=== PATIENT | female | born 1985 | race Caucasian/White ===

== ENCOUNTER 2017-08-13 05:50 | Inpatient (IN) | payer BC ==
[2017-08-13] MEDS ORDERED: OXYTOCIN 10 UNIT/ML 1 ML VIAL IM PRN (06:06)
[2017-08-13] MEDS ORDERED: METHYLERGONOVINE 0.2 MG/ML 1 ML AMP IM PRN (06:06)
[2017-08-13] MEDS ORDERED: LIDOCAINE 1% (PF) 10 MG/ML (30 ML SDV) SQ PRN (06:06)
[2017-08-13] MEDS ORDERED: CARBOPROST TROMETHAMINE 250 MCG/ML 1 ML AMP IM PRN (06:06)
[2017-08-13] MEDS ORDERED: TERBUTALINE 1 MG/ML VIAL SQ PRN (06:06)
[2017-08-13] MEDS ORDERED: OXYTOCIN 20 UNITS/1000 ML NS 1,000 ML IV SCH (06:15)
[2017-08-13 06:18] LABS: Basophils # (A) 0.1 k/uL (0-0.2); Basophils % (A) 0 %; Eosinophils # (A) 0.6 k/uL (0-0.7); Eosinophils % (A) 4 %; HCT 37.1 % (34.0-46.0); HGB 12.3 gm/dL (11.4-16.0); Lymphocytes # (A) 2.5 k/uL (1.0-4.8); Lymphocytes % (A) 17 %; MCH 31.5 pg (25.0-35.0); MCHC 33.2 g/dL (31.0-37.0); MCV 94.8 fL (80.0-100.0); Mean Platelet Volume 7.2; Monocytes # (A) 0.7 k/uL (0-1.0); Monocytes % (A) 5 %; Neutrophils # (A) 10.4 k/uL (1.3-7.7); Neutrophils % (A) 72 %; Platelet Count 253 k/uL (150-450); RBC 3.91 m/uL (3.80-5.40); WBC 14.4 k/uL (3.8-10.6)
[2017-08-13 06:24] VITALS: BMI 28.0
[2017-08-13] MEDS: LACTATED RINGERS 1,000 ML IV SCH ×2 (06:24→11:34)
--- NOTE | 2017-08-13 07:38 | P.HPOB ---
History of Present Illness H&P Date: 08/13/17 This is a 31-year-old white female 1 para 0 EDC 08/26/2017 at 38 and one sevenths week. Patient presents for induction for known intrauterine growth restriction, and newly diagnosed oligohydramnios. Ultrasound in the office yesterday revealed an SD ratio of 75th percentile, but an LULU of only 3 cm. Fetus is been active throughout the . She presents today with mild irregular contractions. She denies fluid leakage or vaginal bleeding. history is significant for known intrauterine growth restriction, less than 3rd percentile. Patient has been followed closely with twice weekly nonstress testing, weekly LULU, and weekly SD ratios which have all been normal. Blood type is B-, broke and received. Urine culture, hepatitis B surface antigen, HIV testing, gonorrhea and chlamydia cultures, group B strep cultures all negative. One-hour Glucola 97. Past medical history is essentially negative. Past surgical history colposcopy in the past, wisdom teeth extracted. Current medications vitamins daily, Fish oil daily. ALLERGIES none known. Social history patient is , she is a nonsmoker, she denies alcohol or drug use. On exam this is a pleasant white female, 5 foot 3 inches, 158 pounds, blood pressure 131/75, vital signs are stable and she is afebrile. Chest is clear in all rick. Extremities reveal no edema. Cervix is 3 cm dilated, 80% effaced, -1 to -2 station, vertex presentation, soft and anterior. Artificial amniorrhexis reveals scant clear non-malodorous fluid. heart rate consistent with reactive nonstress test. Impression: Intrauterine growth restriction at 38 and one sevenths weeks gestation, oligohydramnios. Plan: Close maternal and surveillance. Anticipate normal spontaneous vaginal delivery. Review of Systems Negative except as in HPI Past Medical History Past Medical History: No Reported History History of Any Multi-Drug Resistant Organisms: None Reported Past Surgical History: No Surgical Hx Reported Past Anesthesia/Blood Transfusion Reactions: No Reported Reaction Past Psychological History: No Psychological Hx Reported Smoking Status: Never smoker Past Alcohol Use History: None Reported Past Drug Use History: None Reported - Past Family History Father Family Medical History: No Reported History Medications and Allergies Home Medications Medication Instructions Recorded Confirmed Type Pnv,Calcium 72/Iron/Folic Acid 1 tab PO DAILY 08/13/17 08/13/17 History [ Plus Tablet] Allergies Allergy/AdvReac Type Severity Reaction Status Date / Time No Known Allergies Allergy Verified 08/13/17 06:05 Exam - Vital Signs Vital signs: Vital Signs Temp Pulse Resp BP 08/13/17 06:05 97.6 F 80 16 131/75 Intake and Output 08/12/17 08/13/17 08/13/17 22:59 06:59 14:59 Other: Weight 71.668 kg See dictation, please Results Result Diagrams: 08/13/17 06:10 Abnormal Lab Results - Last 24 Hours (Table) 08/13/17 Range/Units 06:10 WBC 14.4 H (3.8-10.6) k/uL Neutrophils # 10.4 H (1.3-7.7) k/uL Assessment and Plan Plan: Oxytocin per hospital protocol. Close maternal and surveillance. Anticipate normal spontaneous vaginal delivery. Time with Patient: Less than 30
[2017-08-13] MEDS: BUTORPHANOL 1 MG/ML 1 ML VIAL IV PRN ×2 (10:15→12:12)
[2017-08-13] MEDS ORDERED: Acetaminophen-Codeine 300-30mg TAB PO PRN (13:57)
[2017-08-13] MEDS ORDERED: diphenhydrAMINE 50 MG CAP PO PRN (13:57)
[2017-08-13] MEDS ORDERED: WITCH HAZEL 1 EACH MED..PAD TOPICAL PRN (13:57)
[2017-08-13] MEDS ORDERED: SIMETHICONE 80 MG CHEWABLE PO PRN (13:57)
[2017-08-13] MEDS ORDERED: BENZOCAINE/MENTHOL SPRAY 1 GM/SPRAY AEROSOL TOPICAL PRN (13:57)
[2017-08-13] MEDS ORDERED: LANOLIN CREAM 5 GM TUBE TOPICAL PRN (13:57)
[2017-08-13] MEDS ORDERED: diphenhydrAMINE 25 MG CAP PO PRN (13:57)
[2017-08-13] MEDS ORDERED: HYDROCORTISONE 2.5% RECTAL CREAM 30 GM TUBE RECTAL PRN (13:57)
[2017-08-13] MEDS ORDERED: ACETAMINOPHEN TAB 325 MG TAB PO PRN (13:57)
[2017-08-13] MEDS ORDERED: ZOLPIDEM 5 MG TAB PO PRN (13:57)
[2017-08-13] MEDS ORDERED: diphenhydrAMINE 50 MG/ML 1 ML VIAL IVP PRN ×2 (13:57)
--- NOTE | 2017-08-13 13:57 | P.PROBDLV ---
Vaginal Delivery Note - . Vaginal Delivery Note: This is a 31-year-old white female 1 para 0 EDC 08/26/2017 at 38 and one sevenths weeks' gestation. Patient presented for induction with favorable cervix, for known intrauterine growth restriction and recently diagnosed oligohydramnios. SD ratio in the office with 75th percentile. Please see my dictated history and physical for details. On admission patient was 2-3 cm dilated, 80%, -2 to -1 station, vertex, anterior , soft. Artificial amniorrhexis revealed scant clear fluid. Oxytocin was started and titrated per hospital protocol. She was offered epidural but declined, she did receive Stadol. She became completely dilated at 1315 hours and began the second stage of labor at that time. heart tones were reassuring throughout the first and second stages of labor. Perineal body was ultimately prepped and draped in usual sterile fashion. Infant's head delivered occiput anterior and restituted accordingly. There was no nuchal cord noted. The patient was officially delivered of a liveborn male at 1338 hours. The oropharynx, nasopharynx, and external nares were bulb suctioned on the perineum. Umbilical cord was doubly clamped and ligated, he was handed to waiting nurses for evaluation where scores of 8 and 9 at one and 5 minutes respectively were given. Infant weighed 2665 g or 5 lbs. 14 oz. At this time the perineal body was redraped. Uterus was massaged, mobile, symmetric and 18 week size. Bleeding was slightly brisk and therefore Methergine was given 1 with immediate results. Inspection of the cervix, vagina, perineum, periurethral and perirectal areas revealed a small midline first-degree laceration. This was easily repaired in the usual fashion using 3- 0 Vicryl suture. Total estimated blood loss 350 mL's. All sponge needle and enhancement counts are correct at the end of the procedure. Patient and her family are requesting circumcision further son. The are allowed to begin the bonding experience in the LDR.
[2017-08-13] MEDS: IBUPROFEN 600 MG TAB PO PRN (17:43)
[2017-08-13] MEDS: SENNOSIDES-DOCUSATE SODIUM 1 EACH TAB PO SCH (19:36)
--- NOTE | 2017-08-14 07:53 | P.DS ---
Providers Date of admission: 08/13/17 05:50 Expected date of discharge: 08/14/17 Attending physician: Jes Boyle Primary care physician: Stated None Hospital Course: This is a 31-year-old white female 1 para 0 who presented at 38 and one sevenths weeks with a known intrauterine growth restriction baby, with newly diagnosed oligohydramnios. Ultrasound in the office revealed an amniotic fluid index of only 3 cm. SD ratio was normal at 75th percentile. Cervix was favorable, decision was made to proceed with induction. Please see my dictated history and physical for details. Artificial amniorrhexis was performed. Patient declining the option of epidural. She did receive Stadol 1. Oxytocin was started and titrated per hospital protocol. She went on to deliver a liveborn male infant with scores of 8 and 9 at one and 5 minutes respectively. weighed 5 lbs. 14 oz. There was a small first-degree perineal laceration easily repaired. Please see my dictated delivery note for details. This morning the patient and her baby are both doing well. Breast-feeding is going well. Pain is well-controlled with ibuprofen products. Fundus is firm and in the midline, symmetric and 18 week size. Extremities reveal no edema. Banco has been circumcised. He is doing well at the bedside. Patient' s extremities are negative, perineal body is clean and dry, lochia is minimal to moderate. Patient is judged to be in excellent condition for discharge home. She is reminded no tampons, intercourse or douching. She will use [id number] Aleve as needed for pain. She will call me with any fevers shakes or chills, foul smelling or copious lochia, with the passage of large blood clots, with any pain not alleviated by [id number] products, or indeed with any concerns. Banco will follow-up with departmental secretary as per recommendations. We have discussed briefly her options for contraception and we will discuss this further in the office. Patient Condition at Discharge: Good Plan - Discharge Summary New Discharge Prescriptions: No Action Pnv,Calcium 72/Iron/Folic Acid [ Plus Tablet] 1 tab PO DAILY Discharge Medication List Pnv,Calcium 72/Iron/Folic Acid [ Plus Tablet] 1 tab PO DAILY 08/13/17 [ History] Follow up Appointment(s)/Referral(s): Jes Boyle MD [STAFF PHYSICIAN] - 6 Weeks Discharge Disposition: HOME SELF-CARE
[2017-08-14] MEDS: SENNOSIDES-DOCUSATE SODIUM 1 EACH TAB PO SCH ×2 (08:04→20:23)
[2017-08-14] MEDS: IBUPROFEN 600 MG TAB PO PRN ×2 (08:07→13:16)
[2017-08-14] MEDS ORDERED: BISACODYL 10 MG SUPP RECTAL PRN (20:20)
[2017-08-15 00:16] VITALS: RESP 16
[2017-08-15] MEDS: IBUPROFEN 600 MG TAB PO PRN (02:24)
--- NOTE | 2017-08-15 08:19 | P.PNOBGVD ---
Subjective - Subjective Principal diagnosis: day 2 normal spontaneous vaginal delivery Interval history: This patient has done well . Onpostpartum day #2 she is indwelling and voiding without difficulty. She states her lochia is minimal. She is breast-feeding without difficulty. She is tolerating a regular diet without nausea or vomiting and wishes to be discharged home. Patient reports: Reports appetite normal, Reports voiding normally, Reports pain well controlled, Reports ambulating normally, Denies nauseated : doing well Objective - Latest Vital Signs Latest vital signs: Vital Signs Temp Pulse Pulse Resp BP BP Pulse Ox 08/15/ 00:00 98.4 F 86 16 129/72 08/14/17 16:00 97.8 F 80 18 107/68 98 08/14/ 08:23 97.7 F 80 80 16 111/70 97 - Exam Lungs: bilateral: normal Extremities: Present: normal Abdomen: Present: normal appearance Uterus: Present: firm Assessment and Plan (1) Term Narrative/Plan: We'll plan discharge home today on postoperative day #2. Discharge instructions are discussed with this patient in detail. She will follow-up in the office with Dr. Mayo in 4-6 weeks. A perscription for Motrin and a breast pump were given to this patient and all questions are answered. Current Visit: Yes Status: Acute Code(s): Z34.80 - ENCOUNTER FOR SUPRVSN OF NORMAL , UNSP TRIMESTER SNOMED Code(s): 30257105 (2) Oligohydramnios Current Visit: Yes Status: Acute Code(s): O41.00X0 - OLIGOHYDRAMNIOS, UNSP TRIMESTER, NOT APPLICABLE OR UNSP SNOMED Code(s): 33447067
[2017-08-15 08:39] VITALS: BP 113/69; PULSE 79; TEMP 97.6
== END 2017-08-15 11:30 | disposition home or self-care (01) | DRG 775 ==
LOC: 4FBP 05:50
PROVIDERS: ADMIT Obstetrics & Gynecology; ATTEND Obstetrics & Gynecology
PROC: 10907ZC Drainage of Amniotic Fluid, Therapeutic from Products of Conception, Via Natural or Artificial Opening (ICD-10-PCS; principal; 2017-08-13)
PROC: 0HQ9XZZ Repair Perineum Skin, External Approach (ICD-10-PCS; principal; 2017-08-13)
PROC: 10E0XZZ Delivery of Products of Conception, External Approach (ICD-10-PCS; principal; 2017-08-13)
PROC: 3E033VJ Introduction of Other Hormone into Peripheral Vein, Percutaneous Approach (ICD-10-PCS; principal; 2017-08-13)
DX: O36.5930 Maternal care for other known or suspected poor fetal growth, third trimester, not applicable or unspecified (principal); O41.03X0 Oligohydramnios, third trimester, not applicable or unspecified; O70.0 First degree perineal laceration during delivery; Z3A.38 38 weeks gestation of pregnancy; Z37.0 Single live birth
CPT/HCPCS: 85025; 88307

== ENCOUNTER 2022-10-08 20:26 | Outpatient (CLI) | payer BC ==
[2022-10-08 21:28] VITALS: BP 119/75; PULSE 78; RESP 17; TEMP 97.5
--- NOTE | 2022-11-02 11:30 | P.MSEPDOC ---
Presenting Problems - Arrival Data Date of Arrival on Unit: 10/08/22 Time of Arrival on Unit: 20:26 Mode of Transport: Ambulatory - Complaint OB-Reason for Admission/Chief Complaint: Decreased Movement Medical History - Information : 2 Para: 1 Term: 1 : 0 Abortions: Spontaneous or Elective: 0 Number of Living Children: 1 - Gestational Age Gestational Age by FARRAH (wks/days): 38 Weeks and 2 Days - History Complications: Breech Review of Systems - Review of Systems Constitutional: No problems Breast: No problems ENT: No problems Cardiovascular: No problems Respiratory: No problems Gastrointestinal: No problems Genitourinary: No problems Musculoskeletal: No problems Neurological: No problems Skin: No problems Vital Signs - Temperature Temperature: 97.5 F Temperature Source: Temporal Artery Scan - Pulse Right Brachial Pulse Rate: 78 Pulse Assessment Method: Automatic Cuff - Respirations Respiratory Rate: 17 Oxygen Delivery Method: Room Air O2 Sat by Pulse Oximetry: 99 - Blood Pressure Right Arm Blood Pressure: 119/75 Blood Pressure Mean: 89 Blood Pressure Source: Automatic Cuff Medical Screen Scoring - Assessment - Baby A Baseline FHR: 120 Heart Rate - NICHD Category: Category I (Normal) NST: Reactive Physician Notification - Physician Notified Physician Notified Date: 10/08/22 Physician Notified Time: 21:01 Physician: Andrew Stewart New Order Received: Yes - Notification Comment Comment: Dr. Stewart called and given report on pt. aware of pt c/o. VS WNL. Reactive NST. Pt denies feeling contractions. Pt reports movement. Pt has apt with Dr. Boyel on 10/10 at 1445. Orders received to d/c pt to home. Maternal Triage Index - Urgent/Priority 2 Urgent Priority 2: Yes Provider Notified: Andrew Stewart Provider Notified Time: 21:01 Criteria Met for Priority 2: Decreased movement. Disposition - Disposition OB Disposition: Discharge to home Discharge Date: 10/08/22 Discharge Time: 21:10 I agree with the RN Medical Screening Exam: Yes Physician's MSE Comment: I have neither seen nor examined the patient. Case reviewed; plan agreed upon as documented in EMR&OBIX.: Yes Diagnosis: RELATED CONDITIONS, UNSPECIFIED, THIRD TRIMESTER
== END 2022-10-08 21:10 | disposition home or self-care (01) ==
LOC: FBPOP 20:26
PROVIDERS: ATTEND Obstetrics & Gynecology
DX: O26.893 Other specified pregnancy related conditions, third trimester (principal); Z3A.38 38 weeks gestation of pregnancy
CPT/HCPCS: 59025; 99213

== ENCOUNTER 2022-10-10 16:13 | Inpatient (IN) | payer BC ==
[2022-10-10] MEDS ORDERED: CITRIC ACID-SODIUM CITRATE 15 ML CUP PO ONE (16:30)
--- NOTE | 2022-10-10 16:38 | P.HPOB ---
History of Present Illness H&P Date: 10/10/22 Chief Complaint: Early active labor This is a 36-year-old female 2 para 1001 who presents at 38-3/7 weeks' gestation with uterine contractions, and cervical change noted. Double footling breech presentation is known, she is scheduled for in 4 days. Decisi on is made to proceed with now. Fetus is been active throughout the . She denies vaginal bleeding or fluid leakage. Past medical history is significant for kidney infection age 18. Past surgical history colposcopy years ago, Lasix surgery of the eyes, wisdom teeth extracted, tubes in the ears as a child. Current medications vitamins daily. ALLERGIES none known. Family history is unremarkable. Reproductive history vaginal delivery 5 lbs. 14 oz. 2016, unremarkable. Social history patient is a former tobacco smoker. She is a college graduate, , nonsmoker and denies alcohol or drug use. history significant for blood type B negative, rubella status immune. VDRL testing, urine culture, hepatitis B surface antigen, HIV testing, gonorrhea and chlamydia cultures, maternity testing, group strep cultures all negative. One-hour Glucola 118. On exam patient is 5 foot 3 inches, 164 pounds, vital signs are stable and she is afebrile. The general physical exam is within normal limits. Chest is clear in all rick. heart rate is consistent with reactive NST. Uterine contractions are noted on the toco monitor. Cervix is 3 cm dilated, 70-80% effaced, -1-0 station, anterior, soft, with a foot palpated through the membranes which are tense. Impression: 38-3/7 weeks intrauterine , breech presentation, early active labor. Cervical change noted. Plan: For primary section at this time. All risks benefits and alternatives have been discussed. Tubal ligation is offered and declined. Anesthesia aware Review of Systems Constitutional: Reports as per HPI Past Medical History Past Medical History: No Reported History History of Any Multi-Drug Resistant Organisms: None Reported Past Surgical History: No Surgical Hx Reported Past Anesthesia/Blood Transfusion Reactions: No Reported Reaction Smoking Status: Never smoker - Past Family History Father Family Medical History: No Reported History Medications and Allergies Home Medications Medication Instructions Recorded Confirmed Type Pnv,Calcium 72/Iron/Folic Acid 1 tab PO DAILY 08/13/17 10/10/22 History [ Plus Tablet] Allergies Allergy/AdvReac Type Severity Reaction Status Date / Time No Known Allergies Allergy Verified 10/10/22 16:30 Exam Intake and Output 10/10/22 10/10/22 10/10/22 06:59 14:59 22:59 Other: Weight 74.389 kg See dictation under HPI please Assessment and Plan Assessment: 38-3/7 weeks intrauterine , early active labor, breech presentation, cervical change noted. Plan: For primary low transverse section at this time. Tubal ligation offered and declined. All risks benefits and alternatives discussed. All questions answered. Anesthesia present and aware. Time with Patient: Less than 30
[2022-10-10 17:06] LABS: Basophils # (A) 0.1 k/uL (0-0.2); Basophils % (A) 1 %; Eosinophils # (A) 0.3 k/uL (0-0.7); Eosinophils % (A) 2 %; HCT 34.7 % (34.0-46.0); HGB 12.4 gm/dL (11.4-16.0); Lymphocytes # (A) 3.1 k/uL (1.0-4.8); Lymphocytes % (A) 20 %; MCHC 35.7 g/dL (31.0-37.0); MCV 89.6 fL (80.0-100.0); Mean Platelet Volume 8.1; Monocytes # (A) 0.7 k/uL (0-1.0); Monocytes % (A) 4 %; Neutrophils # (A) 11.3 k/uL (1.3-7.7); Neutrophils % (A) 72 %; Platelet Count 252 k/uL (150-450); RBC 3.87 m/uL (3.80-5.40); RDW 13.1 % (11.5-15.5); WBC 15.7 k/uL (3.8-10.6)
[2022-10-10] MEDS ORDERED: KETOROLAC 15 MG/ML 1 ML VIAL ONE (17:08)
[2022-10-10] MEDS ORDERED: ONDANSETRON 4 MG/2 ML VIAL ONE (17:08)
[2022-10-10] MEDS ORDERED: NALBUPHINE 10 MG/ML (1 ML AMP) ONE (17:08)
[2022-10-10] MEDS ORDERED: PHENYLEPHRINE-0.9% NACL SYG 1,000 MCG/10 ML SYRINGE ONE (17:08)
[2022-10-10] MEDS ORDERED: MORPHINE SULFATE (PF) 0.3 MG/0.3 ML SYR ONE (17:08)
[2022-10-10] MEDS ORDERED: ONDANSETRON 4 MG/2 ML VIAL IVP PRN (18:00)
[2022-10-10] MEDS ORDERED: diphenhydrAMINE 50 MG/ML 1 ML VIAL IVP PRN ×2 (18:00)
[2022-10-10] MEDS ORDERED: diphenhydrAMINE 50 MG CAP PO PRN (18:00)
[2022-10-10] MEDS ORDERED: NALOXONE 0.4 MG/ML 1 ML VIAL IV PRN (18:00)
[2022-10-10] MEDS ORDERED: METOCLOPRAMIDE 5 MG/ML 2 ML VIAL IVP PRN (18:00)
[2022-10-10] MEDS ORDERED: diphenhydrAMINE 25 MG CAP PO PRN (18:00)
[2022-10-10] MEDS ORDERED: ZOLPIDEM 5 MG TAB PO PRN (18:00)
--- NOTE | 2022-10-10 18:00 | P.OP ---
Date of Procedure: 10/10/22 Preoperative Diagnosis: 38-4/7 weeks, breech presentation, early labor Postoperative Diagnosis: Same, liveborn male infant, amos breech presentation Procedure(s) Performed: Primary low transverse section Anesthesia: regional, spinal Surgeon: Jes Boyle Wine Merchant #1: Windy Walker Estimated Blood Loss (ml): 405 IV fluids (ml): 900 Urine output (ml): 100 Pathology: none sent Condition: stable Disposition: PACU Operative Findings: Liveborn male , amos breech, scores 9 and 9 at one and 5 minutes, 6 lbs. 12 oz. or 3070 g, normal-appearing tubes and ovaries bilaterally. No [place] rine anomalies Description of Procedure: Patient is brought to the operating suite where she is placed in the dorsal supine position after placement of a spinal with Duramorph without difficulties. Antibiotics are given. The abdomen is prepped and draped in usual sterile fashion. The appropriate timeout is performed to assure proper patient and procedural identification. De La Paz catheter placed to direct drainage, Bicitra given. A low transverse skin incision is made after checking the adequacy of the spinal analgesia. This is carried down through the subcutaneous tissue which is approximate 2 cm in depth. Fascia is isolated, scored, extended bilaterally with curved Bartlett scissors. Peritoneum is next identified and incised, there is no bowel or bladder involvement. Bladder blade is placed over the dome of the bladder, Metzenbaum scissors are used to develop the bladder flap and at all times it is Well from the operative field to avoid bladder and/or ureteral injury. A low transverse uterine incision is made and extended bluntly. is delivered in the amos breech position after artificial amniorrhexis reveals clear fluid. A wet blue towel was placed along the torso of the infant in a Pinard maneuver is used to the deliver the upper extremities bilaterally. Head is delivered in a flexed position. Official delivery time of a liveborn male is 1725 hrs. Umbilical cord is doubly clamped and ligated, he is handed to waiting nurses for evaluation where scores of 9 and 9 at one and 5 minutes respectively are given. Placentas delivered manually, it is inspected and noted to be intact with trivascular cord at 1725 hrs. Uterus is then externalized and massaged. Oxytocin is given. The uterus is swept clean with a sterile sponge to avoid any retained products of conception. The uterus is closed in a two-step fashion, first layer running locking with 0 Vicryl suture, second layer imbricated with saline. Excellent reapproximation and hemostasis is noted. Bilateral tubes and ovaries appear normal. The abdomen is suctioned with a suction on guard posterior to the uterus and the uterus is gently placed back into the abdominal cavity. Bilateral gutters are inspected and cleaned. Peritoneum is allowed close by secondary intention. Fascia is closed in a running stitch of 0 Vicryl with over ligation in the midline. Subcutaneous tissue is irrigated, clean and dry. It is reapproximated with 3-0 Vicryl in a running stitch. 4-0 undyed Monocryl issues for final skin closure. All sponge needle and enhancement counts are correct. De La Paz is noted to be draining clear urine. Total estimated blood loss 405 mL's. Patient is brought back to recovery room in excellent condition with stable vital signs including blood pressure 96/59, pulse 61, respirations 16. Patient is requesting circumcision for her infant son.
[2022-10-10] MEDS: ACETAMINOPHEN TAB 500 MG TAB PO SCH (21:34)
[2022-10-10] MEDS: SENNOSIDES-DOCUSATE SODIUM 1 EACH TAB PO SCH (21:34)
[2022-10-10] MEDS: LACTATED RINGERS 1,000 ML IV SCH (21:36)
[2022-10-11] MEDS: IBUPROFEN 600 MG TAB PO SCH ×4 (00:52→19:59)
--- NOTE | 2022-10-11 07:52 | P.PN ---
Progress Note - Text Progress Note Date: 10/11/22 (561) Anesthesia Postop day 1 Subjective: Status Post section with Duramorph. Patient seen and examined. Doing well without complaint. VAS 2 out of 10. On nausea vomiting or pruritus. Denies fever. Gross lower extremity strength intact. Without apparent anesthetic complications. Objective: Vital signs reviewed Heart: Regular Rate Lungs: Good chest excursion Abdomen: Appears nondistended Assessment: Status post with Duramorph postop day 1 Plan: Continue current care with your medical management. Anticipated and the Duramorph around 5 PM tonight, you may see increased pain needs around this time.
[2022-10-11] MEDS: SENNOSIDES-DOCUSATE SODIUM 1 EACH TAB PO SCH ×2 (08:07→20:01)
[2022-10-11 09:04] LABS: Basophils % (A) 0 %; Eosinophils # (A) 0.2 k/uL (0-0.7); Eosinophils % (A) 2 %; HGB 10.2 gm/dL (11.4-16.0); Lymphocytes # (A) 2.2 k/uL (1.0-4.8); Lymphocytes % (A) 16 %; MCH 31.1 pg (25.0-35.0); MCHC 33.9 g/dL (31.0-37.0); MCV 91.9 fL (80.0-100.0); Mean Platelet Volume 8.5; Monocytes # (A) 0.7 k/uL (0-1.0); Monocytes % (A) 5 %; Neutrophils # (A) 10.9 k/uL (1.3-7.7); Neutrophils % (A) 77 %; Platelet Count 235 k/uL (150-450); RBC 3.27 m/uL (3.80-5.40); RDW 13.1 % (11.5-15.5); WBC 14.2 k/uL (3.8-10.6)
--- NOTE | 2022-10-11 09:55 | P.PN ---
Subjective Progress Note Date: 10/11/22 Principal diagnosis: Doing well first postoperative day Slept well. Minimal pain. Positive flatus. Objective - Vital Signs Vital signs: Vital Signs Temp 98.1 F 10/11/22 07:50 Pulse 68 10/11/22 07:50 Resp 16 10/11/22 07:50 BP 98/56 10/11/22 07:50 Pulse Ox 98 10/11/22 04:00 FiO2 Intake & Output 10/10/22 10/11/22 10/11/22 18:59 06:59 18:59 Output Total 405 660 600 Balance -405 -660 -600 Weight 74.389 kg Output: Urine 600 600 Uretheral (De La Paz) 100 Estimated Blood Loss 60 Output, Quantitative 405 Blood Loss Other: Voiding Method Indwelling Catheter # Voids 2 - Constitutional General appearance: Present: average body habitus, cooperative - EENT Eyes: Present: PERRLA ENT: Present: hearing grossly normal - Respiratory Respiratory: bilateral: CTA - Cardiovascular Rhythm: regular - Gastrointestinal Gastrointestinal Comment(s): Incision clean and dry, intact. General gastrointestinal: Present: normal bowel sounds - Integumentary Integumentary: Present: normal - Neurologic Neurologic: Present: CNII-XII intact - Musculoskeletal Musculoskeletal: Present: gait normal, strength equal bilaterally - Psychiatric Psychiatric: Present: A&O x's 3, appropriate affect, intact judgment & insight - Labs CBC & Chem 7: 10/11/22 07:25 Labs: Abnormal Lab Results - Last 24 Hours (Table) 10/10/22 10/11/22 Range/Units 16:33 07:25 WBC 15.7 H 14.2 H (3.8-10.6) k/uL RBC 3.27 L (3.80-5.40) m/uL Hgb 10.2 L (11.4-16.0) gm/dL Hct 30.0 L (34.0-46.0) % Neutrophils # 11.3 H 10.9 H (1.3-7.7) k/uL Assessment and Plan Assessment: Doing well first postoperative day Plan: Advance to regular diet. May shower. D/C IV. Continue postoperative care. Circumcision this morning. Likely discharge home tomorrow. Time with Patient: Less than 30
[2022-10-11] MEDS: ACETAMINOPHEN TAB 500 MG TAB PO SCH ×4 (12:03→21:44)
[2022-10-11] MEDS: LACTATED RINGERS 1,000 ML IV SCH (20:00)
[2022-10-12] MEDS: ACETAMINOPHEN TAB 500 MG TAB PO SCH ×2 (00:23→06:12)
[2022-10-12] MEDS: IBUPROFEN 600 MG TAB PO SCH ×2 (02:02→09:12)
[2022-10-12] MEDS: SENNOSIDES-DOCUSATE SODIUM 1 EACH TAB PO SCH (08:19)
--- NOTE | 2022-10-12 09:15 | P.DS ---
Providers Date of admission: 10/10/22 16:13 Expected date of discharge: 10/12/22 Attending physician: Jes Boyle Primary care physician: Stated None - Discharge Diagnosis(es) (1) Breech presentation Current Visit: Yes Status: Acute (2) Term Current Visit: No Status: Acute (3) S/P section Current Visit: Yes Status: Acute Hospital Course: This is a 36-year-old 001 that presented at 38-3/7 weeks with uterine contractions and cervical change appreciated. Double footling breech presentation was known and she had been scheduled for a proximally 4 days. Given contractions and cervical change decision was made to proceed with primary on presentation. Patient had been receiving routine care which has been essentially uncomplicated. Patient was taken to the op erating suite for primary low transverse section secondary to breech presentation. For full details on the procedure please see the operative report. Patient delivered a viable male infant weight of 6 lbs. 12 oz., Apgars of 9 and 9 at one and 5 minutes respectively. Patient's course has been uneventful. On this day #2 she is ambulating and voiding without difficulty. She is tolerating a regular diet without nausea or vomiting. She states her pain is well-controlled with Motrin and Tylenol. She denies concerns and would like discharge home. Patient Condition at Discharge: Good Plan - Discharge Summary New Discharge Prescriptions: No Action Pnv,Calcium 72/Iron/Folic Acid [ Plus Tablet] 1 tab PO DAILY Discharge Medication List Pnv,Calcium 72/Iron/Folic Acid [ Plus Tablet] 1 tab PO DAILY 08/13/17 [History] Follow up Appointment(s)/Referral(s): Jes Boyle MD [STAFF PHYSICIAN] - 2 Weeks Patient Instructions/Handouts: (DC), (GEN) Discharge Disposition: HOME SELF-CARE
[2022-10-12 09:16] VITALS: BP 94/65; PULSE 72; RESP 15; TEMP 98
== END 2022-10-12 11:15 | disposition home or self-care (01) | DRG 788 ==
LOC: 4FBP 16:13
PROVIDERS: ADMIT Obstetrics & Gynecology; ATTEND Obstetrics & Gynecology
PROC: 10D00Z1 Extraction of Products of Conception, Low, Open Approach (ICD-10-PCS; principal; 2022-10-10 16:53)
DX: O32.8XX0 Maternal care for other malpresentation of fetus, not applicable or unspecified (principal); Z87.891 Personal history of nicotine dependence; Z28.310 Unvaccinated for COVID-19; Z3A.38 38 weeks gestation of pregnancy; Z37.0 Single live birth
CPT/HCPCS: 85025; 86850; 86900; 86901

== ENCOUNTER → 2024-07-16 | Outpatient (CLI) | payer BC ==
--- NOTE | 2024-07-16 09:59 | US ---
EXAMINATION TYPE: US pelvis complete transvag DATE OF EXAM: 07/16/2024 COMPARISON: NONE CLINICAL INDICATION: Female, 38 years old with history of R10.30 LOWER ABDOMINAL PAIN, UNSPECIFIED; P t states on/off pelvic pain x 2 months TECHNIQUE: Transvaginal (TV) and Transabdominal (TA) . Transabdominal grayscale, color Doppler and spectral Doppler sonographic images of the pelvis were acquired. Transvaginal sonographic images wer e medically necessary to better assess the following anatomy: TV ordered per physician FINDINGS: Date of LMP: 2 days ago EXAM MEASUREMENTS: Uterus: 7.2 x 3.4 x 3.4 cm Endometrial Stripe: 0.5 cm Right Ovary: 3.1 x 2.5 x 2.1 cm Left Ovary: 2.7 x 1.8 x 2.0 cm 1. Uterus: Anteverted Heterogeneous 2. Endometrium: wnl 3. Right Ovary: wnl 4. Left Ovary: wnl 5. Bilateral Adnexa: wnl 6. Posterior cul-de-sac: wnl IMPRESSION: Unremarkable study [facility], , 07/16/2024 9:56 AM
== END | disposition home or self-care (01) ==
LOC: RADUSWWP 08:38
PROVIDERS: ATTEND Family Medicine
DX: R10.30 Lower abdominal pain, unspecified (principal)
CPT/HCPCS: 76830; 76856